=== PATIENT | male | born 1955 | race Caucasian/White ===

== ENCOUNTER 2016-04-29 15:07 | Day surgery (SDC) | payer OTHER ==
[~2016-04-29] VITALS: Ht 170.2 cm; Wt 69.1 kg
[2016-04-29] MEDS ORDERED: BENAZEPRIL (16:32)
[2016-04-29] MEDS ORDERED: METFORMIN (16:32)
[2016-04-29] MEDS ORDERED: HUMALOG (16:32)
[2016-04-29] MEDS ORDERED: ATORVASTATIN (16:32)
[2016-04-29 16:37] VITALS: Ht 170.2 cm; Wt 69.1 kg
[2016-04-29 17:06] VITALS: BP 135/78; PULSE 79; RESP 24
--- NOTE | 2016-04-29 17:49 | GILP ---
DATE OF PROCEDURE: NAME OF PROCEDURE: Colonoscopy. SURGEON: Byron Silva MD PREOPERATIVE DIAGNOSIS: Screening colonoscopy. POSTOPERATIVE DIAGNOSES: 1. Colonoscopy all the way to the cecum. 2. Internal hemorrhoids. 3. No colon neoplasm was identified. INDICATION FOR THE PROCEDURE: Mr. Juaquin Montes is a 60-year-old male patient who was schedule d for screening colonoscopy. The procedure and possible complications were well explained to the patient. The patient understood and consented to the procedure. DESCRIPTION OF PROCEDURE: Under the influence of fentanyl and Versed, the colonoscope was carefully introduced in the rectum, and under direct vision, it was advanced all the way to the cecum. FINDINGS: The patient had internal hemorrhoids. No colon neoplasm was identified. He tolerated the procedure very well. There was no complication from the procedure. At the end of the procedure, he was awake with stable vital signs, and he was discharged home to the care of his [facility]. IMPRESSION: 1. Colonoscopy all the way to the cecum. 2. Internal hemorrhoids. 3. No colon neoplasm was identified. PLAN: Next screening colonoscopy in 10 years. Dictated By: BYRON ZHOU/CEZAR Conf#: [id number] DID#: [id number]
[2016-04-29] MEDS ORDERED: FENTAnyl 50 MCG/ML VIAL ONE (17:51)
[2016-04-29] MEDS ORDERED: MIDAZOLAM 1 MG/ML 2 ML INJ ONE (17:51)
[2016-04-29 18:00] VITALS: BP 132/74; PULSE 82; RESP 24
== END 2016-04-29 18:13 | disposition home or self-care (01) ==
LOC: GIL 15:07
PROVIDERS: ATTEND Internal Medicine Gastroenterology
DX: Z12.11 Encounter for screening for malignant neoplasm of colon (principal); K64.8 Other hemorrhoids; I10 Essential (primary) hypertension; E11.9 Type 2 diabetes mellitus without complications
CPT/HCPCS: 45378; 82962; J2250; J3010